=== PATIENT | female | born 1995 | race Caucasian/White ===

== ENCOUNTER 2018-07-29 09:36 | Emergency (ER) | payer BC ==
[~2018-07-29] VITALS: Ht 162.6 cm; Wt 60.0 kg
[2018-07-29] MEDS ORDERED: ACETAMINOPHEN 325MG TABLET PO ONE (11:45)
[2018-07-29 11:55] LABS: CLARITY URINE CLOUDY (CLEAR); COLOR URINE YELLOW (YELLOW); KETONES URINE NEGATIVE (NEGATIVE); LEUKOCYTE ESTERASE URINE 2+ (NEGATIVE); NITRITE URINE NEGATIVE (NEGATIVE); OCCULT BLOOD URINE NEGATIVE (NEGATIVE); PH URINE 7.5 (4.5-8.0); PROTEIN URINE TRACE (NEGATIVE); UROBILINOGEN URINE 0.2 E.U./dL (0.2-1.0)
[2018-07-29 12:47] LABS: BASOPHILS % 0.4 % (0.0-2.0); EOSINOPHILS % 0.5 % (0.0-5.0); HEMOGLOBIN. 10.7 g/dL (12.0-16.0); LYMPHOCYTES % 9.7 % (20.0-50.0); MEAN CORPUSCULAR HEMOGLOBIN 31.7 pg (28.0-32.0); MEAN PLATELET VOLUME 9.1 fl (7.4-10.4); MONOCYTES % 7.8 % (2.0-8.0); NEUTROPHILS % 81.6 % (40.0-76.0); PLATELET 265 x1000/uL (130-400); RED BLOOD CELL COUNT 3.37 mill/uL (4.2-5.4); RED CELL DISTRIBUTION WIDTH 13.3 % (11.6-14.6)
[2018-07-29 12:54] LABS: CHLORIDE 109 mEq/L (98-107)
[2018-07-29 13:20] LABS: B-HCG QUANTITATIVE 12484 mIU/mL (<3)
[2018-07-29 13:44] VITALS: BP 120/63
== END 2018-07-29 13:46 | disposition home or self-care (01) ==
LOC: ER 09:36
DX: O26.893 Other specified pregnancy related conditions, third trimester (principal); S00.03XA Contusion of scalp, initial encounter; O23.43 Unspecified infection of urinary tract in pregnancy, third trimester; R55 Syncope and collapse; O99.283 Endocrine, nutritional and metabolic diseases complicating pregnancy, third trimester; E03.9 Hypothyroidism, unspecified; Z3A.28 28 weeks gestation of pregnancy; X58.XXXA Exposure to other specified factors, initial encounter; Y93.89 Activity, other specified; Y92.89 Other specified places as the place of occurrence of the external cause; Y99.8 Other external cause status
CPT/HCPCS: 36415; 76805; 80053; 81003; 81025; 84443; 84702; 85025; 85610; 93005; 99284; Z7610